=== PATIENT | male | born 1990 | race Caucasian/White ===

== ENCOUNTER 2020-06-15 03:17 | Emergency (ER) | payer MEDICARE, MEDICAID ==
[~2020-06-15] VITALS: Ht 160 cm; Wt 73.2 kg
[2020-06-15] MEDS ORDERED: HYDROCODONE/ACETAMINOPHEN 5/325MG TABLET PO PRN (04:30)
[2020-06-15 04:45] VITALS: BP 138/87
== END 2020-06-15 05:15 | disposition home or self-care (01) ==
LOC: ER 03:17
DX: Z46.89 Encounter for fitting and adjustment of other specified devices (principal); M79.642 Pain in left hand; G80.9 Cerebral palsy, unspecified; R03.0 Elevated blood-pressure reading, without diagnosis of hypertension
CPT/HCPCS: 99283

== ENCOUNTER 2021-08-03 09:12 | Emergency (ER) | payer MEDICARE, MEDICAID ==
[~2021-08-03] VITALS: Ht 160 cm; Wt 77.0 kg
[2021-08-03] MEDS ORDERED: IBUPROFEN 600MG TABLET PO ONE (09:45)
[2021-08-03] MEDS ORDERED: ACET-2708 MT (11:02)
[2021-08-03] MEDS ORDERED: IBUP-2029 MT (11:02)
[2021-08-03] MEDS ORDERED: LIDO700A15 TP (11:02)
[2021-08-03 11:21] VITALS: BP 106/66
== END 2021-08-03 11:22 | disposition home or self-care (01) ==
LOC: ER 09:41
DX: M25.552 Pain in left hip (principal); K42.9 Umbilical hernia without obstruction or gangrene; Z98.890 Other specified postprocedural states
CPT/HCPCS: 73502; 99283

== ENCOUNTER 2021-09-17 13:28 | Emergency (ER) | payer MEDICARE, MEDICAID ==
[~2021-09-17] VITALS: Ht 162.6 cm; Wt 75.5 kg
[~2021-09-17 13:28] MED LIST: ACET-2708 MT; IBUP-2029 MT; LIDO700A15 TP
[2021-09-17 13:33] VITALS: BP 135/84
[2021-09-17] MEDS ORDERED: IBUPROFEN 600MG TABLET PO STA (14:33)
[2021-09-17] MEDS ORDERED: NAPR-681 PO (16:23)
== END 2021-09-17 16:46 | disposition home or self-care (01) ==
LOC: ER 13:28
DX: S00.93XA Contusion of unspecified part of head, initial encounter (principal); M54.2 Cervicalgia; G81.90 Hemiplegia, unspecified affecting unspecified side; Z98.890 Other specified postprocedural states; Z79.899 Other long term (current) drug therapy; W18.39XA Other fall on same level, initial encounter; Y93.89 Activity, other specified; Y92.89 Other specified places as the place of occurrence of the external cause; Y99.8 Other external cause status
CPT/HCPCS: 72100; 99283

== ENCOUNTER 2022-04-12 09:01 | Emergency (ER) | payer MEDICARE, MEDICAID ==
[~2022-04-12] VITALS: Ht 152.4 cm; Wt 73.0 kg
[~2022-04-12 09:01] MED LIST changes: +NAPR-681 PO
[2022-04-12] MEDS ORDERED: IBUPROFEN 600MG TABLET PO ONE (09:15)
[2022-04-12 10:38] VITALS: BP 121/76
[2022-04-12] MEDS ORDERED: IBUPROFEN 600MG TABLET PO NR (10:45)
[2022-04-12] MEDS ORDERED: IBUP-2029 MT (10:57)
== END 2022-04-12 11:17 | disposition home or self-care (01) ==
LOC: ER 09:01
DX: S80.01XA Contusion of right knee, initial encounter (principal); W18.39XA Other fall on same level, initial encounter; Y93.89 Activity, other specified; Y92.89 Other specified places as the place of occurrence of the external cause; Y99.8 Other external cause status; M79.89 Other specified soft tissue disorders
CPT/HCPCS: 73560; 99283

== ENCOUNTER 2022-09-20 15:12 | Emergency (ER) | payer MEDICARE, MEDICAID ==
[~2022-09-20] VITALS: Ht 162.6 cm; Wt 78.1 kg
[2022-09-20 15:26] VITALS: BP 112/83
[2022-09-20] MEDS ORDERED: ERYT1OIN6 EACHEYE (16:32)
== END 2022-09-20 16:55 | disposition home or self-care (01) ==
LOC: ER 15:12
DX: H10.9 Unspecified conjunctivitis (principal); Z79.899 Other long term (current) drug therapy
CPT/HCPCS: 99283